=== PATIENT | female | born 1965 | race Caucasian/White ===

== ENCOUNTER 2017-04-09 03:39 | Observation (INO) | payer BC ==
[~2017-04-09] VITALS: Ht 149.9 cm; Wt 68.2 kg
[2017-04-09] MEDS ORDERED: LISI10TA4 PO (03:53)
[2017-04-09] MEDS ORDERED: FISH1000 PO (03:53)
[2017-04-09] MEDS ORDERED: CIME800T4 PO (03:53)
[2017-04-09] MEDS ORDERED: MILK175C2 PO (03:53)
[2017-04-09] MEDS ORDERED: SUCR1TA PO (03:53)
[2017-04-09] MEDS ORDERED: B121000T PO (03:53)
[2017-04-09] MEDS ORDERED: NS 1,000 ML IV ONE (04:15)
[2017-04-09] MEDS ORDERED: MORPHINE 4 MG/ML 1ML SYRINGE IV ONE (04:15)
[2017-04-09 04:30] LABS: BASO % 0.3 % (0.0-1.0); EOS # 0.4 K/mm3 (0.0-0.50); EOS % 4.1 % (0.0-3.0); LARGE UNSTAINED CELL # 0.2 K/mm3 (0.0-0.4); LARGE UNSTAINED CELL % 1.4 % (0.0-4.0); LYMPH # 1.7 K/mm3 (1.5-4.5); LYMPH % 14.3 % (24.0-44.0); MEAN CORPUSCULAR HEMOGLOBIN 30.2 pg (27.0-33.0); MEAN CORPUSCULAR HGB CONC 33.3 g/dl (32.0-36.5); MEAN CORPUSCULAR VOLUME 90.8 fl (80.0-96.0); MONO # 0.7 K/mm3 (0.0-0.8); NEUTROPHILS # 8.2 K/mm3 (1.8-7.7); NEUTROPHILS % 74.1 % (36.0-66.0); PLATELET COUNT, AUTOMATED 265 k/mm3 (150-450); RED CELL DISTRIBUTION WIDTH 12.7 % (11.5-14.5); WHITE BLOOD COUNT 11.1 K/mm3 (4.0-10.0)
[2017-04-09 04:37] LABS: INR 0.85
[2017-04-09 04:54] LABS: ALBUMIN 3.8 GM/DL (3.2-5.2); ALBUMIN/GLOBULIN RATIO 1.15 (1.00-1.93); ALKALINE PHOSPHATASE 79 U/L (45-117); ALT/SGPT 28 U/L (12-78); ANION GAP 9 MEQ/L (8-16); AST/SGOT 16 U/L (15-37); BILIRUBIN,DIRECT 0.2 MG/DL (0.0-0.2); BILIRUBIN,TOTAL 0.9 MG/DL (0.2-1.0); BLOOD UREA NITROGEN 12 MG/DL (7-18); CALCIUM LEVEL 9.1 MG/DL (8.5-10.1); CARBON DIOXIDE LEVEL 25 MEQ/L (21-32); CHLORIDE LEVEL 107 MEQ/L (98-107); CREATININE FOR GFR 0.67 MG/DL (0.55-1.02); GLOMERULAR FILTRATION RATE > 60.0 (>51); GLUCOSE, FASTING 110 MG/DL (70-105); POTASSIUM SERUM 3.9 MEQ/L (3.5-5.1); SODIUM LEVEL 141 MEQ/L (136-145); TOTAL PROTEIN 7.1 GM/DL (6.4-8.2)
[2017-04-09] MEDS ORDERED: ONDANSETRON 4MG/2ML VIAL (J2405) IV PRN (06:00)
[2017-04-09] MEDS ORDERED: PERCOCET 5MG/325MG TAB PO PRN (06:00)
--- NOTE | 2017-04-09 06:30 | REPUSA ---
CLINICAL HISTORY: Abdominal pain. TECHNIQUE: Multiple axial, sagittal and coronal CT images were obtained through the abdomen and pelvi s without administration of oral or IV contrast material. COMMENTS: Diffuse thickening of the sigmoid colon. Prior cholecystectomy. Mild diffuse thickening of the wall of the bladder. The liver is of uniform attenuation without mass or defect. There is no intra or extrahepatic biliary ductal dilatation. The spleen is normal. The pancreas is of normal contour and attenuation character istics. There is no evidence of adrenal mass. The kidneys are normal in size, shape and configuration. No renal or ureteral calculi are identified. There is no hydroureter or hydronephrosis. There is no evidence for appendicitis. No evidence for small or large bowel obstruction. There is no evidence of abdominal ascites or lymphadenopathy. There is no evidence of intrinsic or extrinsic bladder mass. There is no pelvic ascites or lymphadeno radha. Images of the lung bases show no evidence of pleural or parenchymal mass. There are no pleural effusi ons. The bony structures are free of lytic or blastic lesions. Multilevel degenerative changes are seen in volving the thoracolumbar spine. Scattered calcifications are seen involving the aorta and major branches compatible with atherosclero sis. IMPRESSION: Diffusely thickened sigmoid colon. Probably infectious/inflammatory pathology. Clinical evaluation and followup are suggested. No perforation or abscess formation. No evidence of pneumatosis coli. Thank you for your kind referral of this patient.
[2017-04-09] MEDS: PERCOCET 5MG/325MG TAB PO PRN ×2 (06:44→14:23)
--- NOTE | 2017-04-09 07:11 | HPE ---
DATE OF ADMISSION: 04/09/2017 PCP in [place]. CHIEF COMPLAINT: Rectal bleeding. HISTORY OF PRESENT ILLNESS: The patient is a 51-year-old female with a past medical history of gastroesophageal reflux disease, hypertension, B12 deficiency , who presented to the hospital. She states that after mowing the lawn on the afternoon on 04/08/2017 she came into the house and had some lower abdominal cramping. She had a regular bowel movement, which was followed by two episodes of watery diarrhea. Several hours past and then she got another episode of diarrhea, which she states was bloody. She had two more episodes before coming to the hospital. She denies feeling lightheaded, dizzy, chest pain, shortness of breath, fever, chills. She denies recent travel. She tells me that she did eat some "suspect chicken wings" the day before yesterday. No other sick contacts. She has no family history of inflammatory bowel disease. She has had a colonoscopy at that age of 48, 3 years ago and she was told it was fine, had no polyps. She also did have an endoscopy done in January, which she tells me was "fine", also done in [place]. The patient has had some back pain lately, but she is not taking any nonsteroidal anti-inflammatory drugs (NSAIDs) for it. PAST MEDICAL HISTORY: 1. Hypertension. 2. Gastroesophageal reflux disease (GERD). 3. B12 deficiency. HOME MEDICATIONS: - fish oil 1 gram daily - cimetidine 800 mg nightly - B12 1000 mcg daily - Milk Thistle 175 mg daily - lisinopril 10 mg daily - Carafate 1 gram before food and nightly, which she has not been taking. ALLERGIES: AMOXICILLIN, PSEUDOEPHEDRINE and SULFA DRUGS. PAST SURGICAL HISTORY: 1. Dilation and curettage. 2. Tubal ligation. 3. Umbilical hernia repair. 4. Cholecystectomy. SOCIAL HISTORY: She lives in [place], but visits here very often. She lives with her . She denies alcohol, tobacco or illicit drug use. FAMILY HISTORY: Noncontributory for family history of irritable bowel disease. REVIEW OF SYSTEMS: 10-point is completed; negative other than in the history of the present illness (HPI). PHYSICAL EXAMINATION: Temperature 97.9, pulse 67, blood pressure (BP) 130/65. She is not orthostatic. 100% on room. General: She is a pleasant, middle-aged female, lying flat in bed. She does not appear to be in any acute distress whatsoever. HEENT: Cranial nerves II-XII are grossly intact. She has moist mucous membranes, good color. No pallor. No elevation of central venous pressure (CVP). Cardiovascular exam: S1, S2, regular. She is not tachycardic. Respiratory exam is clear. Abdominal exam: Bowel sounds are present. The abdomen is soft. It is nontender even with deep palpation. Extremities: No clubbing, cyanosis or edema. LABORATORY STUDIES: WBC 11.1, hemoglobin 14.1, hematocrit 42.3, platelet count 265. Chemistry panel: Sodium 141, potassium 3.9, chloride 107, bicarbonate 25, BUN 12, creatinine 0.6. Liver function tests within normal limits. INR is 1.8. No imaging. ASSESSMENT AND PLAN: This is a 51-year-old female with blood diarrhea. PROBLEMS: 1. Hematochezia/bloody diarrhea. This is certainly concerning for possibly a lower gastrointestinal (GI) bleed. Given that she has had negative scopes within the recent past and this is an abrupt onset of her symptoms, I suspect this may be a self-limited infectious diarrhea. GI, PCR panel at this time has not been ordered. I will order it. Emergency room (ER) did express grave concern for her ongoing bleeding. She was occult stool blood positive. I will check a CT scan of her abdomen, monitor her hemoglobin and hematocrit. I will keep her nothing by mouth and place her on normal saline, provide her with an intravenous (IV) proton pump inhibitor (PPI) and as needed Zofran as well as a K-Pad to her belly. I will type and screen her and check a lactic acid level. I feel this is likely self-limited infectious diarrhea. 2. Hypertension. We will continue with lisinopril with holding parameters. 3. Gastroesophageal reflux disease. Continue with Carafate. She has not been taking this at home but we will provide her with it while she is here. I will give her an IV PPI as mentioned above. She also normally takes cimetidine at home. 4. Deep venous thrombosis (DVT) prophylaxis. Sequential and thromboembolism deterrents (TEDs). DISPOSITION: The patient will be admitted to the medical-surgical floor under Dr. Galvan's service, who will continue to follow the patient at 7 a.m. Should she have the ongoing bleeding or fail to improve or resolve, consider gastroenterology consultation with Dr. Nicholson. KIKE
[2017-04-09 08:30] VITALS: BP 120/61
[2017-04-09] MEDS: LISINOPRIL 10 MG TAB PO SCH (09:00)
[2017-04-09] MEDS: NS 1,000 ML IV SCH ×2 (09:29→19:56)
[2017-04-09] MEDS: PANTOPRAZOLE 40MG INJ (PROTONIX) (C9113) IV SCH (09:30)
[2017-04-09] MEDS: SUCRALFATE 1 GM TAB PO SCH ×4 (09:31→19:55)
[2017-04-09 14:00] VITALS: BP 132/73
[2017-04-09 18:00] VITALS: BP 129/74
[2017-04-09 22:00] VITALS: BP 122/68
[2017-04-10 06:00] VITALS: BP 124/68
[2017-04-10] MEDS ORDERED: CIPROFLOXACIN 500 MG TAB PO SCH (06:00)
[2017-04-10 06:58] LABS: MEAN CORPUSCULAR HEMOGLOBIN 30.7 pg (27.0-33.0); MEAN CORPUSCULAR HGB CONC 33.4 g/dl (32.0-36.5); MEAN CORPUSCULAR VOLUME 91.9 fl (80.0-96.0); RED CELL DISTRIBUTION WIDTH 12.7 % (11.5-14.5); WHITE BLOOD COUNT 9.5 K/mm3 (4.0-10.0)
[2017-04-10 07:20] LABS: ANION GAP 11 MEQ/L (8-16); BLOOD UREA NITROGEN 10 MG/DL (7-18); CALCIUM LEVEL 8.3 MG/DL (8.5-10.1); CARBON DIOXIDE LEVEL 23 MEQ/L (21-32); CHLORIDE LEVEL 110 MEQ/L (98-107); CREATININE FOR GFR 0.52 MG/DL (0.55-1.02); GLOMERULAR FILTRATION RATE > 60.0 (>51); GLUCOSE, FASTING 66 MG/DL (70-105); SODIUM LEVEL 144 MEQ/L (136-145)
[2017-04-10] MEDS: SUCRALFATE 1 GM TAB PO SCH (08:23)
[2017-04-10] MEDS: NS 1,000 ML IV SCH (08:23)
[2017-04-10 08:26] VITALS: BP 110/72
[2017-04-10] MEDS: LISINOPRIL 10 MG TAB PO SCH (08:26)
[2017-04-10] MEDS: PANTOPRAZOLE 40MG INJ (PROTONIX) (C9113) IV SCH (08:27)
[2017-04-10] MEDS ORDERED: CIPR-249 PO (08:54)
[2017-04-10] MEDS ORDERED: FLAG500T PO (08:54)
[2017-04-10] MEDS ORDERED: metroNIDAZOLE (FLAGYL) 500 MG TAB PO SCH (09:00)
[2017-04-10 10:00] VITALS: BP 120/63
--- NOTE | 2017-04-10 10:23 | IPNPDOC ---
Subjective Date Seen The patient was seen on 04/10/17. Subjective Chief Complaint/HPI The patient is a 51-year-old female admitted with a reason for visit of Gastrointestinal Bleeding. Events since last encounter No further bloody diarrhea overnight , no abdominal pain , no nausea or vomiting , no fever or chills, Objective Physical Examination General Exam: Positive: Alert, Cooperative, No Acute Distress Eye Exam: Positive: PERRLA, Conjunctiva & lids normal, EOMI, Negative: Sclera icteric ENT Exam: Positive: Atraumatic, Mucous membr. moist/pink, Pharynx Normal Neck Exam: Positive: Supple, Negative: JVD, thyromegaly Chest Exam: Positive: Clear to auscultation, Normal air movement Heart Exam: Positive: Rate Normal, Regular Rhythm, Normal S1, Normal S2, Negative: Murmurs, Rubs Abdomen Exam: Positive: Normal bowel sounds, Soft, Negative: Tenderness, Hepatospenomegaly Extremity Exam: Positive: Normal pulses, Negative: Clubbing, Cyanosis, Edema Assessment /Plan Problems (1) Enterocolitis Status: Acute Problem Text: possibly infectious will give ciprofloxacin and flagyl. (2) GIB (gastrointestinal bleeding) Status: Acute Problem Text: due to enterocolitis hh stable , bleeding resolved. (3) GERD (gastroesophageal reflux disease) Status: Chronic (4) Vitamin B 12 deficiency Status: Chronic (5) Hypertension Status: Chronic Plan/VTE VTE Prophylaxis Ordered?: Yes Disposition patient is going to be discharged home . follow up with pmd in 2 weeks diet as tolerated activity as tolerated. VS, I&O, 24H, Fishbone Vital Signs/I&O Vital Signs Date Time Temp Pulse Resp B/P (MAP) Pulse Ox O2 Delivery O2 Flow Rate FiO2 04/10/17 10:00 98.8 71 18 120/63 (82) 98 Room Air I&O- Last 24 Hours up to 6 AM 04/10/17 06:00 Intake Total 1720 ml Output Total 300 ml Balance 1420 ml Laboratory Data 24H LABS Laboratory Tests 2 04/10/17 06:17: Anion Gap 11, Glomerular Filtration Rate > 60.0, Blood Urea Nitrogen 10, Creatinine 0.52L, Sodium Level 144, Potassium Level 4.0, Chloride Level 110H, Carbon Dioxide Level 23, Calcium Level 8.3L CBC/BMP Laboratory Tests 04/09/17 15:53 04/10/17 06:17 Red Blood Count 4.17, Mean Corpuscular Volume 91.9, Mean Corpuscular Hemoglobin 30.7, Mean Corpuscular Hemoglobin Concent 33.4, Red Cell Distribution Width 12.7 , Calcium Level 8.3 L Microbiology Microbiology 04/09/17 Stool Lactoferrin - Final, Complete 04/09/17 Gastrointestinal Tract Panel (PCR) - Final, Complete CHELSEY BOYKIN MD Apr 10, 2017 10:23
== END 2017-04-10 12:40 | disposition home or self-care (01) ==
LOC: M ED 03:39 → M ED INP 03:40 → M MS5PR 08:30
PROVIDERS: ADMIT Internal Medicine; ATTEND Internal Medicine Nephrology
DX: K52.9 Noninfective gastroenteritis and colitis, unspecified (principal); K92.2 Gastrointestinal hemorrhage, unspecified; K21.9 Gastro-esophageal reflux disease without esophagitis; I10 Essential (primary) hypertension; E53.8 Deficiency of other specified B group vitamins; Z79.899 Other long term (current) drug therapy; Z88.0 Allergy status to penicillin; Z88.8 Allergy status to other drugs, medicaments and biological substances; Z88.2 Allergy status to sulfonamides
CPT/HCPCS: 36415; 74176; 80048; 80076; 83605; 83630; 85014; 85018; 85025; 85027; 85610; 85730; 86850; 86900; 86901; 87507; 96361; 96374; 96376; 99284; C9113